=== PATIENT | female | born 1965 | race Caucasian/White ===

== ENCOUNTER 2019-01-23 08:58 | Day surgery (SDC) | payer OTHER ==
[2019-01-22 14:08] LABS: Absolute Lymphocytes (CBC) 1.9 K/uL (0.7-4.9); Absolute Monocytes 0.4 K/uL (0.1-1.3); Basophils % 0.6 % (0-1.3); Eosinophils % 2.7 % (0-4.4); Hematocrit 43.6 % (36.0-45.0); Lymphocytes % 34.6 % (15.3-44.8); MPV 8.9 fL (7.6-11.3); Monocytes % 7.7 % (3.3-12.3); RBC Red Blood Cell Count 4.92 M/uL (3.86-4.86)
[2019-01-22 14:24] LABS: ALT/SGPT 52 U/L (12-78); AST/SGOT 41 U/L (15-37); Albumin 4.4 g/dL (3.4-5.0); Alkaline Phosphatase 88 U/L (45-117); Amylase Level 67 U/L (25-115); Bilirubin Direct < 0.1 mg/dL (0-0.2); Bilirubin Total 0.4 mg/dL (0.2-1.0); Potassium 4.3 mmol/L (3.5-5.1)
[2019-01-23] MEDS ORDERED: Ringers Lactate 1,000 ML IV ONE ×2 (09:32→11:44)
[2019-01-23] MEDS ORDERED: CEFAZOLIN/SWI 1gm 1 GM/10 ML SYR ONE (09:51)
[2019-01-23] MEDS ORDERED: BUPIVACAINE 0.5% PF 10 ML VIAL ONE (09:54)
[2019-01-23] MEDS ORDERED: PROPOFOL 200 MG/20 ML VIAL IV ONE (10:12)
[2019-01-23] MEDS ORDERED: LIDOCAINE 1% MPF 5 ML VIAL ONE ×2 (10:12→10:13)
[2019-01-23] MEDS ORDERED: ROCURONIUM 50 MG/5 ML VIAL IV ONE ×2 (10:12→11:21)
[2019-01-23] MEDS ORDERED: MIDAZOLAM HCL 2 MG/2 ML INJ ONE (10:12)
[2019-01-23] MEDS ORDERED: ONDANSETRON 4 MG/2 ML VIAL ONE ×2 (10:12→11:55)
[2019-01-23] MEDS ORDERED: FENTANYL CITR 100 MCG/2 ML ONE ×2 (10:12→10:51)
[2019-01-23] MEDS ORDERED: EPHEDRINE SULF 50 MG/10 ML SYR ONE (10:43)
[2019-01-23] MEDS ORDERED: GLYCOPYRROLATE 0.2 MG/ML SYR ONE ×3 (10:55→11:24)
[2019-01-23] MEDS ORDERED: ATROPINE SULF 1 MG/10 ML SYR IV ONE (10:58)
[2019-01-23] MEDS ORDERED: NEOSTIGMINE 1 MG/ML -10 ML VIAL ONE (11:25)
[2019-01-23] MEDS ORDERED: HYDROMORPHONE HCL 1 MG/ML INJ ONE (12:02)
[2019-01-23] MEDS ORDERED: CODEINE 30MG/APAP 300MG TAB ONE (12:54)
--- NOTE | 2019-01-23 19:50 | OP ---
Date of Procedure: 01/23/2019 Surgeon: George Moran MD Preoperative Diagnoses: Symptomatic cholelithiasis and umbilical hernia. Postoperative Diagnoses: Symptomatic cholelithiasis and umbilical hernia. Procedures: Laparoscopic cholecystectomy. Repair of umbilical hernia. Estimated Blood Loss: Minimal. Specimen: Gallbladder. Findings: As above. Anesthesia: General. Complications: None. Disposition: The patient tolerated the procedure in stable condition and taken to Recovery in good g eneral condition. Procedure In Detail: The patient was brought to the OR and placed in supine position. General anest hesia was begun. The patient was prepped and draped in usual sterile fashion. Then, a 15-blade was used to make a 2 cm supraumbilical midline incision. Subcutaneous tissue was divided. The fascia wa s identified and divided and then #1 Vicryl stitches were placed. The peritoneal cavity entered with sharp and blunt dissection. The umbilical hernia identified. It was approximately 4-5 mm in diamet er. This was closed at the end of the case. Then pneumoperitoneum was established. Three, 5 mm tro cars were placed, 1 in the epigastrium just to the right of midline and 2 in the right subcostal hollis on. Laparoscopy revealed chronic inflammation of the gallbladder. Fundus retracted superiorly. Inf undibulum was identified and retracted inferolaterally. Cystic duct and cystic artery were clearly i dentified with blunt dissection. Clips placed. Both structures were divided. Cautery was used to r emove the gallbladder from the liver bed. Bleeding in the liver bed was controlled with cautery. Th e gallbladder was retrieved through the umbilicus via an EndoCatch bag. Right upper quadrant was irr igated. Effluent was clear. No evidence of bleeding or bile leakage appreciated. Subsequently, the fascial defect in the umbilicus was extended slightly to include the hernia defect. A #1 Vicryl was used to close the hernia defect. Stay sutures were tied to each other to approximate the surgically created fascial defect. The subcutaneous wounds were irrigated. Bleeding controlled with cautery. A 3-0 chromic was used to approximate the subcutaneous tissue and erica were used to closed the sk in. Sterile dressing was applied. The patient was awakened and taken to Recovery in good general co ndition. /MODL Voice ID: [id number] Report ID: [id number]
--- NOTE | 2019-01-23 19:50 | DS ---
Date of Discharge: 01/23/2019 Discharge Note: The patient will go to Day Surgery and home when stable. Disposition: Home. Condition: Stable. Discharge Instructions: Resume home medications and diet. Activity as tolerated. No heavy lifting. Remove outer dressing in 2 days. Shower. Keep wound clean, and dry. Abdominal binder as ordered. Incentive spirometry as ordered. Tylenol No. 3 one tablet p.o. q.4 p.r.n. pain. Follow up in my o ffice in a week. Call for appointment. /MODL Voice ID: [id number] Report ID: [id number]
== END 2019-01-23 13:07 | disposition home or self-care (01) ==
LOC: OR 08:58
PROVIDERS: ATTEND Surgery
PROC: 0FT44ZZ Resection of Gallbladder, Percutaneous Endoscopic Approach (ICD-10-PCS; principal; 2019-01-23 10:30)
PROC: 0WQF0ZZ Repair Abdominal Wall, Open Approach (ICD-10-PCS; 2019-01-23 10:30)
DX: K80.10 Calculus of gallbladder with chronic cholecystitis without obstruction (principal); K42.9 Umbilical hernia without obstruction or gangrene; I10 Essential (primary) hypertension; Z79.82 Long term (current) use of aspirin; Z79.899 Other long term (current) drug therapy
CPT/HCPCS: 36415; 80048; 80076; 82150; 85025; 88304; J0690; J1170; J2250; J2405; J2704; J2710; J3010